=== PATIENT | male | born 1970 | race American Indian/Alaskan Native ===

== ENCOUNTER 2018-07-11 02:20 | Emergency (ER) | payer OTHER ==
[~2018-07-11] VITALS: Ht 175.3 cm; Wt 103.9 kg
[~2018-07-11 02:20] MED LIST: IBUPROFEN600 MG PO
--- OUTSIDE RECORDS SUMMARY | 2018-07-11 02:22 | XMS ---
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 Corie has no Care Guidelines for this patient. Leticia VISIT COUNT (12 MO.) [address] [place] [address] [facility] TOTAL 3 NOTE: Visits indicate total known visits. ED/C VISIT TRACKING (12 MO.) 07/11/2018 02:21 [facility] [place] TYPE: Emergency COMPLAINT: - CHEST PAIN 02/06/2018 17:[address] [facility] [place] TYPE: Emergency COMPLAINT: - WRIST INJURY DIAGNOSES: - Pain in left wrist - Striking against or struck by other objects, initial encounter - Anxiety disorder, unspecified - Major depressive disorder, single episode, unspecified - Essential (primary) hypertension - Strain of unspecified muscle, fascia and tendon at wrist and hand level, left hand, initial encounter 11/26/2017 21:32 [facility] TYPE: Emergency COMPLAINT: - TOOTHACHE DIAGNOSES: 0. TOOTHACHE 1. Fracture of tooth (traumatic), initial encounter for closed fracture 2. Pure hypercholesterolemi 2. Nicotine dependence, chewing tobacco, uncomplicated 2. Other fpc (current) drug therapy 2. Essential (primary) hypertension - Other specified disorder INPATIENT VISIT TRACKING (12 MO.) No inpatient visits to display in this time frame [email or web address]
[2018-07-11] MEDS ORDERED: LISINOPRIL20 MG PO (02:28)
[2018-07-11] MEDS ORDERED: BUPROPION XL150 MG PO (02:28)
[2018-07-11] MEDS ORDERED: SIMVASTATIN10 MG PO (02:29)
--- NOTE | 2018-07-11 17:03 | EKG ---
[facility] [address] [facility] [place], [place] [address] Signed Sinus tachycardia Otherwise normal ECG No previous ECGs available Confirmed by TASNEEM PALMER DO ([id number]) on 07/11/2018 5:03:07 PM Electronically Signed By: TASNEEM PALMER DO 07/11/18 1703 PATIENT NAME: KEMARTANVIR Electrocardiogram DATE OF : 70 PHYSICIAN: TASNEEM PALMER DO REPORT #: [id number] REPORT IS CONFIDENTIAL AND NOT TO BE RELEASED WITHOUT AUTHORIZATION
== END 2018-07-11 05:55 | disposition home or self-care (01) ==
LOC: ED 02:20
DX: R07.9 Chest pain, unspecified (principal); I10 Essential (primary) hypertension; F41.9 Anxiety disorder, unspecified; F32.9 Major depressive disorder, single episode, unspecified; Z79.899 Other long term (current) drug therapy
CPT/HCPCS: 71045; 80053; 84484; 85025; 93005; 93010; 96361; 96374; 96375; 99285-25; J2270; J2405; J7030

== ENCOUNTER 2019-07-02 17:22 | Emergency (ER) | payer OTHER ==
[~2019-07-02] VITALS: Ht 175.3 cm; Wt 103.9 kg
[~2019-07-02 17:22] MED LIST changes: +BUPROPION XL150 MG PO; +LISINOPRIL20 MG PO; +SIMVASTATIN10 MG PO
--- OUTSIDE RECORDS SUMMARY | 2019-07-02 17:24 | XMS ---
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 Care History Medical/Surgical 07/11/2018 [facility] \T\middot;\T\nbsp; PATIENT IS A [employer] MEMBER. \T\middot;\T\nbsp; PLEASE REFER PATIENT TO [facility] FOR NON EMERGENT MEDICAL NEEDS. \T\middot;\ T\nbsp; [facility] CAN SEE PATIENTS SAME DAY FOR APTS IF PATIENT CALLS FIRST THING IN THE MORNING. E.D. VISIT COUNT (12 MO.) 2 [facility] TOTAL 2 NOTE: Visits indicate total known visits. 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
[2019-07-02] MEDS ORDERED: METOPROLOL SUCC25 MG PO (17:37)
[2019-07-02] MEDS ORDERED: PROZAC10 MG PO (17:37)
[2019-07-02] MEDS ORDERED: FLONASE ALLERG9.9 ML NAS (17:37)
[2019-07-02] MEDS ORDERED: ROBAXIN-750750 MG PO (19:23)
[2019-07-02] MEDS ORDERED: LIDODERM1 EACH TOP (19:23)
== END 2019-07-02 19:50 | disposition home or self-care (01) ==
LOC: ED 17:22
DX: M54.5 Low back pain (principal); F41.9 Anxiety disorder, unspecified; F32.9 Major depressive disorder, single episode, unspecified; I10 Essential (primary) hypertension; Z79.899 Other long term (current) drug therapy
CPT/HCPCS: 81001; 99283

== ENCOUNTER 2021-08-04 18:29 | Emergency (ER) | payer OTHER ==
[~2021-08-04] VITALS: Ht 175.3 cm; Wt 116.6 kg
[~2021-08-04 18:29] MED LIST changes: +FLONASE ALLERG9.9 ML NAS; +LIDODERM1 EACH TOP; +METOPROLOL SUCC25 MG PO; +PROZAC10 MG PO; +ROBAXIN-750750 MG PO
[2021-08-04] MEDS ORDERED: DICLOFENAC POTA25 MG PO (18:52)
== END 2021-08-04 21:02 | disposition home or self-care (01) ==
LOC: ED 18:29
DX: M79.652 Pain in left thigh (principal); R20.2 Paresthesia of skin; I10 Essential (primary) hypertension; K21.9 Gastro-esophageal reflux disease without esophagitis; E78.5 Hyperlipidemia, unspecified; Z79.899 Other long term (current) drug therapy
CPT/HCPCS: 93971; 99284-25